=== PATIENT | female | born 1990 | race Two or more races ===

== ENCOUNTER 2018-12-28 15:09 | Inpatient (IN) | payer MEDICAID ==
[~2018-12-28] VITALS: Ht 154.9 cm; Wt 87.1 kg
[~2018-12-28 15:09] MED LIST: ACET325T14 PO; ACET650S21 PO/NG; AMOX250S6 PO; DIPH25TA65 PO; LAMO25TA9 PO; MECL-85 PO; OXCA600T3 PO; PREN1TAB25 PO
[2018-12-28] MEDS ORDERED: SODIUM CHLORIDE FLUSH 10ML SYR IVF ONE (15:30)
[2018-12-28] MEDS ORDERED: METOCLOPRAMIDE 5 MG/ML, 2ML IVPush ONE (15:30)
[2018-12-28] MEDS ORDERED: METOCLOPRAMIDE 5 MG/ML, 2ML ONE (15:40)
[2018-12-28] MEDS ORDERED: MORPHINE SULFATE 4 MG/ML, 1ML ONE ×2 (15:40→16:32)
[2018-12-28 15:48] LABS: HCG UR SG 1.028 (1.003-1.030); MICROSCOPIC AUTO
[2018-12-28 15:51] LABS: CULTURE INDICATED? YES
[2018-12-28] MEDS: MORPHINE SULFATE 4 MG/ML, 1ML IVPush PRN ×2 (15:56→16:35)
[2018-12-28] MEDS ORDERED: CEFTRIAXONE PMX 1GM/50ML 50 ML IV ONE (16:00)
--- NOTE | 2018-12-28 16:00 | NUR ---
LATE ENTRY FOR 16:00. PT C/O ALL QUADRANTS ABD AND BILATERAL LOWER BACK PAIN WITH N/V X 1 WEEK. PT DENIES ZAYAS/D AT THIS TIME. PT AOX4. RESPS EVEN AND UNLABORED. ALL MONITORS IN PLACE. CALL LIGHT WITHIN REACH. AWAITING EDMD ASSESSMENT AT THIS TIME.
--- NOTE | 2018-12-28 16:03 | NUR ---
PRECEPTOR NOTE: PT TO XRAY
[2018-12-28 16:11] LABS: BASOPHILS # (AUTO) 0.06 x10^3/uL (0-0.1); BASOPHILS % (AUTO) 0 % (0-1); EOSINOPHILS # (AUTO) 0.06 x10^3/uL (0-0.4); EOSINOPHILS % (AUTO) 0 % (1-7); LYMPHOCYTES # (AUTO) 1.87 x10^3/uL (1-3.4); LYMPHOCYTES % (AUTO) 14 % (22-44); MD NO; MEAN CORPUSCULAR HEMOGLOBIN 27.2 pg (27.0-34.8); MEAN CORPUSCULAR HGB CONC 33.4 g/dL (32.4-35.8); MEAN CORPUSCULAR VOLUME 81.4 fL (80-100); MEAN PLATELET VOLUME 9.2 fL (7.4-10.4); MONOCYTES # (AUTO) 1.07 x10^3/uL (0.2-0.8); MONOCYTES % (AUTO) 8 % (2-9); NEUTROPHILS # (AUTO) 10.62 x10^3/uL (1.8-6.8); NEUTROPHILS % (AUTO) 78 % (42-75); PLATELET COUNT 359 x10^3/uL (130-400); RED BLOOD COUNT 4.33 x10^6/uL (3.82-5.3)
[2018-12-28 16:23] LABS: ALBUMIN 3.1 g/dL (3.4-5.0); ANION GAP 10 mmol/L (5-15); CALCIUM 8.9 mg/dL (8.5-10.1); CHLORIDE 103 mmol/L (98-107)
[2018-12-28 16:26] LABS: ALANINE AMINOTRANSFERASE 16 U/L (12-78); ALKALINE PHOSPHATASE 66 U/L (45-117); BILIRUBIN,TOTAL 0.5 mg/dL (0.2-1.0); CREATININE 0.87 mg/dL (0.55-1.02); TOTAL PROTEIN 8.1 g/dL (6.4-8.2)
--- NOTE | 2018-12-28 16:29 | NUR ---
per ESTHER Loomis, no blood cx needed prior to abx.
[2018-12-28] MEDS ORDERED: KETOROLAC 30 MG/1 ML IVPush ONE (16:30)
[2018-12-28] MEDS ORDERED: CEFTRIAXONE PMX 1GM/50ML 50 ML ONE (16:32)
[2018-12-28] MEDS ORDERED: KETOROLAC 30 MG/1 ML ONE (16:32)
--- NOTE | 2018-12-28 16:52 | NUR ---
PT IN CT NOW.
--- NOTE | 2018-12-28 16:59 | NUR ---
pt back from CT
--- NOTE | 2018-12-28 17:26 | NUR ---
PT REQUESTING PAIN MEDICATION FOR PAIN RATE 8 AT THIS TIME. EDMD NOTIFIED.
[2018-12-28] MEDS ORDERED: HYDROmorphone 1 MG/ML, 1ML IV ONE (17:30)
--- NOTE | 2018-12-28 17:40 | NUR ---
report to break [facility].
[2018-12-28] MEDS ORDERED: HYDROmorphone 1 MG/ML, 1ML ONE (17:51)
[2018-12-28] MEDS ORDERED: OXCA300T3 PO (17:57)
[2018-12-28] MEDS ORDERED: RISP0.253 PO (17:57)
--- NOTE | 2018-12-28 17:57 | NUR ---
TASK RN: Krista PRADHAN, at bedside to discuss ED findings and POC. Pt medicated per JAN.
--- NOTE | 2018-12-28 18:49 | NUR ---
report to break CLIF herbert
--- NOTE | 2018-12-28 18:51 | NUR ---
Melonie RAZO, at bedside to evaluate pt for admission.
--- NOTE | 2018-12-28 19:09 | NUR ---
TASK RN: Telephone SBAR report called to Carmen MENEZES. Pt made aware of new room assignment.
[2018-12-28] MEDS ORDERED: BISACODYL 10 MG SUPP PR PRN (19:30)
[2018-12-28] MEDS ORDERED: ACETAMINOPHEN 325 MG TABLET PO PRN (19:30)
[2018-12-28] MEDS ORDERED: hydrALAzine 20 MG/ML, 1ML IVPush PRN (19:30)
[2018-12-28] MEDS ORDERED: LIDODERM 5% PATCH TD PRN (19:30)
[2018-12-28 20:07] VITALS: BP 141/89
[2018-12-28] MEDS: HYDROmorphone 2 MG/ML, 1ML IVPush PRN (20:31)
[2018-12-28] MEDS: D5%-0.45% NACL 1,000 ML IV SCH (20:32)
[2018-12-28] MEDS: OXCARBAZEPINE 300MG TABLET PO SCH (20:32)
[2018-12-28] MEDS: RISPERIDONE 0.5 MG TABLET PO SCH (20:32)
[2018-12-28] MEDS: TEMAZEPAM 15 MG CAPSULE PO PRN (20:32)
[2018-12-28] MEDS: KETOROLAC 30 MG/1 ML IV PRN (22:35)
[2018-12-29 01:56] VITALS: BP 118/78
[2018-12-29] MEDS: D5%-0.45% NACL 1,000 ML IV SCH ×3 (01:59→20:21)
[2018-12-29] MEDS: HYDROmorphone 2 MG/ML, 1ML IVPush PRN ×4 (01:59→20:21)
[2018-12-29] MEDS: KETOROLAC 30 MG/1 ML IV PRN ×2 (04:59→16:23)
[2018-12-29 05:10] LABS: BASOPHILS # (AUTO) 0.04 x10^3/uL (0-0.1); BASOPHILS % (AUTO) 0 % (0-1); EOSINOPHILS # (AUTO) 0.36 x10^3/uL (0-0.4); EOSINOPHILS % (AUTO) 4 % (1-7); LYMPHOCYTES # (AUTO) 2.42 x10^3/uL (1-3.4); LYMPHOCYTES % (AUTO) 25 % (22-44); MD NO; MEAN CORPUSCULAR HEMOGLOBIN 27.5 pg (27.0-34.8); MEAN CORPUSCULAR HGB CONC 33.7 g/dL (32.4-35.8); MEAN CORPUSCULAR VOLUME 81.9 fL (80-100); MEAN PLATELET VOLUME 9.1 fL (7.4-10.4); MONOCYTES # (AUTO) 0.92 x10^3/uL (0.2-0.8); MONOCYTES % (AUTO) 9 % (2-9); NEUTROPHILS # (AUTO) 6.03 x10^3/uL (1.8-6.8); NEUTROPHILS % (AUTO) 62 % (42-75); PLATELET COUNT 286 x10^3/uL (130-400); RED BLOOD COUNT 3.95 x10^6/uL (3.82-5.3); RED CELL DISTRIBUTION WIDTH 13.9 % (9.6-15.2)
[2018-12-29 05:23] LABS: ANION GAP 7 mmol/L (5-15); CALCIUM 8.6 mg/dL (8.5-10.1); CHLORIDE 103 mmol/L (98-107); CREATININE 0.97 mg/dL (0.55-1.02)
[2018-12-29 06:45] VITALS: BP 127/85
[2018-12-29] MEDS: OXCARBAZEPINE 300MG TABLET PO SCH ×2 (08:16→20:21)
[2018-12-29] MEDS ORDERED: MIDAZOLAM 1 MG/ML, 2ML ONE (08:45)
[2018-12-29] MEDS ORDERED: FENTANYL PF 250 MCG/5ML ONE (08:46)
[2018-12-29] MEDS ORDERED: CEFAZOLIN 1,000 MG ONE (08:48)
[2018-12-29] MEDS ORDERED: PROPOFOL 10 MG/ML, 20ML ONE (08:48)
[2018-12-29] MEDS ORDERED: ONDANSETRON 2MG/ML, 2ML ONE (08:48)
[2018-12-29] MEDS ORDERED: DEXAMETHASONE 4 MG/ML, 1ML ONE (08:48)
[2018-12-29] MEDS ORDERED: GLYCOPYRROLATE 0.2MG/1ML, 5ML ONE (08:48)
[2018-12-29] MEDS ORDERED: NEOSTIGMINE 1 MG/ML, 10ML ONE (08:48)
[2018-12-29] MEDS ORDERED: ROCURONIUM 10MG/ML,5ML ONE (08:48)
[2018-12-29] MEDS ORDERED: hydrALAzine 20 MG/ML, 1ML IV PRN (10:30)
[2018-12-29] MEDS ORDERED: FENTANYL PF 100 MCG/2ML IV PRN (10:30)
[2018-12-29] MEDS ORDERED: HYDROmorphone 2 MG/ML, 1ML IVPush PRN (10:30)
[2018-12-29] MEDS ORDERED: PROMETHAZINE 12.5 MG SUPP PR PRN (10:30)
[2018-12-29] MEDS ORDERED: ACETAMINOPHEN 325 MG TABLET PO PRN (10:30)
[2018-12-29] MEDS ORDERED: PROMETHAZINE 25 MG SUPP PR PRN (10:30)
[2018-12-29] MEDS ORDERED: PROMETHAZINE 25 MG/ML, 1ML IM PRN ×2 (10:30)
[2018-12-29] MEDS ORDERED: MORPHINE SULFATE 4 MG/ML, 1ML IVPush PRN (10:30)
[2018-12-29] MEDS ORDERED: OXYcodone 5 MG/5 ML ORAL.SOL UDC PO PRN (10:30)
[2018-12-29] MEDS ORDERED: DIAZEPAM 5 MG/ML, 2ML IVPush PRN (10:30)
[2018-12-29] MEDS ORDERED: HALOPERIDOL 5 MG/ML IV PRN (10:30)
[2018-12-29] MEDS ORDERED: PROMETHAZINE 25 MG/ML, 1ML IV PRN (10:30)
[2018-12-29] MEDS ORDERED: LABETALOL 5MG/ML, 20ML IV PRN (10:30)
[2018-12-29] MEDS ORDERED: MEPERIDINE/PF 25MG/0.5ML IVPush PRN (10:30)
[2018-12-29] MEDS ORDERED: CEFTRIAXONE 1,000 MG ONE (11:15)
[2018-12-29 12:46] VITALS: BP 121/79
[2018-12-29] MEDS: METOCLOPRAMIDE 5 MG/ML, 2ML IVPush PRN ×2 (13:44→20:21)
[2018-12-29] MEDS ORDERED: CEFTRIAXONE PMX 1GM/50ML 50 ML IV SCH (16:00)
[2018-12-29 19:50] VITALS: BP 111/76
[2018-12-29] MEDS: RISPERIDONE 0.5 MG TABLET PO SCH (20:21)
[2018-12-29] MEDS: TEMAZEPAM 15 MG CAPSULE PO PRN (20:22)
[2018-12-30] MEDS: KETOROLAC 30 MG/1 ML IV PRN (00:12)
[2018-12-30 01:10] VITALS: BP 108/72
[2018-12-30] MEDS: KETOROLAC 30 MG/1 ML IVPush PRN ×2 (04:57→11:22)
[2018-12-30] MEDS: D5%-0.45% NACL 1,000 ML IV SCH (04:58)
[2018-12-30 06:07] LABS: ANION GAP 9 mmol/L (5-15); CALCIUM 8.4 mg/dL (8.5-10.1); CHLORIDE 107 mmol/L (98-107); CREATININE 0.76 mg/dL (0.55-1.02)
[2018-12-30 06:19] LABS: BASOPHILS # (AUTO) 0.05 x10^3/uL (0-0.1); BASOPHILS % (AUTO) 0 % (0-1); EOSINOPHILS # (AUTO) 0.03 x10^3/uL (0-0.4); EOSINOPHILS % (AUTO) 0 % (1-7); LYMPHOCYTES # (AUTO) 2.86 x10^3/uL (1-3.4); LYMPHOCYTES % (AUTO) 17 % (22-44); MD NO; MEAN CORPUSCULAR HEMOGLOBIN 27.5 pg (27.0-34.8); MEAN CORPUSCULAR HGB CONC 33.5 g/dL (32.4-35.8); MEAN CORPUSCULAR VOLUME 82.2 fL (80-100); MONOCYTES # (AUTO) 1.06 x10^3/uL (0.2-0.8); MONOCYTES % (AUTO) 6 % (2-9); NEUTROPHILS # (AUTO) 12.46 x10^3/uL (1.8-6.8); NEUTROPHILS % (AUTO) 76 % (42-75); PLATELET COUNT 336 x10^3/uL (130-400); RED BLOOD COUNT 3.91 x10^6/uL (3.82-5.3); RED CELL DISTRIBUTION WIDTH 13.8 % (9.6-15.2)
[2018-12-30] MEDS: HYDROmorphone 2 MG/ML, 1ML IVPush PRN (07:53)
[2018-12-30] MEDS: OXCARBAZEPINE 300MG TABLET PO SCH (07:53)
[2018-12-30 08:15] VITALS: BP 122/71
[2018-12-30] MEDS ORDERED: ACET325T14 PO (11:07)
[2018-12-30] MEDS ORDERED: KETO10TA PO (11:07)
[2018-12-30] MEDS ORDERED: CEFD300C37 PO (11:07)
[2018-12-30] MEDS ORDERED: METO5TAB2 PO ×2 (11:07)
[2018-12-30] MEDS ORDERED: PROM25TA10 PO (11:20)
== END 2018-12-30 12:25 | disposition home or self-care (01) | DRG 854 ==
LOC: ED 16:23 → EDIP 17:47 → 3NE 19:37 → DCLOUNGE 12-30 12:03
PROVIDERS: ADMIT Hospitalist; ATTEND Internal Medicine
PROC: 0T778DZ Dilation of Left Ureter with Intraluminal Device, Via Natural or Artificial Opening Endoscopic (ICD-10-PCS; principal; 2018-12-29 10:30)
DX: A41.9 Sepsis, unspecified organism (principal); N13.6 Pyonephrosis; F32.9 Major depressive disorder, single episode, unspecified; G40.909 Epilepsy, unspecified, not intractable, without status epilepticus; G43.909 Migraine, unspecified, not intractable, without status migrainosus; Z82.49 Family history of ischemic heart disease and other diseases of the circulatory system; Z87.440 Personal history of urinary (tract) infections; Z87.442 Personal history of urinary calculi; Z98.51 Tubal ligation status; Z90.89 Acquired absence of other organs; Z88.8 Allergy status to other drugs, medicaments and biological substances; Z91.040 Latex allergy status; Z68.36 Body mass index [BMI] 36.0-36.9, adult
CPT/HCPCS: 36415; 74018; 76000; 99285; J3490; 74176; 76700; 80048; 80053; 81001; 81025; 83690; 85025; 87086; 96365; 96375; C1726; G0378; J0690; J0696; J1100; J1170; J1885; J2250; J2405; J2704; J2710; J3010; C2617; J2765